=== PATIENT | male | born 1985 | race African-American/Black ===

== ENCOUNTER 2017-09-16 18:05 | Emergency (ER) | payer OTHER ==
[~2017-09-16] VITALS: Ht 175.3 cm; Wt 74.0 kg
[2017-09-16 18:26] VITALS: BP 109/67; PULSE 87; RESP 14; TEMP 97.9; O2SAT 100
[2017-09-16 19:19] VITALS: BP 119/66; PULSE 92; RESP 18; O2SAT 99
--- NOTE | 2017-09-16 19:44 | PD ---
HPI Chief Complaint: Psychiatric Symptoms Time Seen by Provider: 19:13 Travel History International Travel<30 days: No Contact w/Intl Traveler<30days: No Traveled to known affect area: No History of Present Illness HPI 32-year-old black male presents emergency department on a voluntary basis for psychological evaluation. Patient states that he has a history of schizophrenia and has been off his medicine for approximately 1-1/2 weeks. He states that he had just decided not to take them any longer. He has had increasing auditory hallucinations. He states that his hearing voices clearly telling him to kill himself. He has no plan on self-harm. He denies any homicidal ideation. He does smoke marijuana. He denies alcohol and tobacco. He denies any medical complaints otherwise[facility] Past Medical History Narrative Medical Schizophrenia Tetanus Vaccination: Unknown Past Surgical History Surgical History: No Previous Surgery Social History Alcohol Use: No Tobacco Use: No Substance Use: Yes (Marijuana) Allergies-Medications (Allergen,Severity, Reaction): Coded Allergies: No Known Allergies (Unverified , 09/16/17) Review of Systems General / Constitutional: No: Fever Eyes: No: Visual changes HENT: No: Headaches Cardiovascular: No: Chest Pain or Discomfort Respiratory: No: Shortness of Breath Gastrointestinal: No: Abdominal Pain Genitourinary: No: Dysuria Musculoskeletal: No: Pain Skin: No Rash Neurologic: No: Weakness Psychiatric: Positive: Depression, Disorder of Thought, Substance Abuse, No: Anxiety, Suicidal Ideations, Mood Disorder, Homicidal Ideation Endocrine: No: Polydipsia Hematologic/Lymphatic: No: Easy Bruising Physical Exam Narrative GENERAL: Well-nourished, well-developed patient. SKIN: Warm and dry. HEAD: Normocephalic and atraumatic. EYES: No scleral icterus. No injection or drainage. ENT: No nasal drainage noted. Mucous membranes pink. Airway patent. NECK: Supple, trachea midline. Moves head freely without obvious discomfort. CARDIOVASCULAR: Regular rate and rhythm without murmurs, gallops, or rubs. RESPIRATORY: Breath sounds equal bilaterally. No accessory muscle use. GASTROINTESTINAL: Abdomen soft, non-tender, nondistended. EXTREMITIES: No cyanosis or edema. BACK: Nontender without obvious deformity. No CVA tenderness. NEURO: Patient is alert and oriented. no sensorimotor deficits. Nonfocal. Normal speech. PSYCH: Patient admits to auditory hallucinations telling him to kill himself. No visual hallucinations. Data Data Last Documented VS Vital Signs Date Time Temp Pulse Resp B/P (MAP) Pulse Ox O2 Delivery O2 Flow Rate FiO2 09/17/17 00:39 18 09/16/17 19:19 92 99 Room Air 09/16/17 18:26 97.9 Orders Orders Diet Regular Basic (09/17/17 Breakfast) Complete Blood Count With Diff (09/16/17 19:35) Comprehensive Metabolic Panel (09/16/17 19:35) Thyroid Stimulating Hormone (09/16/17 19:35) Drug Screen, Random Urine (09/16/17 19:35) Alcohol (Ethanol) (09/16/17 19:35) Salicylates (Aspirin) (09/16/17 19:35) Tylenol (Acetaminophen) (09/16/17 19:35) Diet Regular Basic (09/16/17 Breakfast) Ed Discharge Order (09/17/17 04:37) MDM Medical Decision Making Medical Screen Exam Complete: Yes Emergency Medical Condition: Yes Medical Record Reviewed: Yes Differential Diagnosis MDM: High Differential diagnoses: Schizophrenia, schizoaffective disorder, bipolar, anxiety, depression, adjustment reaction, mood disorder NOS, ODD, depressive disorder NOS,, psychosis NOS, substance induced mood disorder, infection, electrolyte abnormality, malingering. Narrative Course Mental health screening discussed with the patient. Psychiatric screen ordered. The patient's been medically cleared. The patient has refused laboratory testing. He has refused to give urine. I do not believe that I will need this to consider him medically cleared. This is medical clearance for psychiatric admission, schizophrenia The patient now has requested leave. He has been evaluated by the psych screener. She does not believe that the patient requires inpatient management. She does not feel the patient is a candidate for a Quintero act at this time. He has not acutely suicidal homicidal. She feels comfortable letting him go home. Diagnosis Primary Impression: Medical clearance for psychiatric admission Additional Impression: Schizophrenia Referrals: [facility] (Out patient) 1 day Patient Instructions: General Instructions Additional Instructions: Rest. Follow-up with the recommendations of the psych screener. Follow-up with [facility] today. Med/Other Pt SpecificInfo: No Meds Exist/No RX given Disposition: DISCHARGE HOME Condition: Stable Niraj Lau Sep 16, 2017 19:44
[2017-09-17 00:39] VITALS: RESP 18
[2017-09-17 04:48] VITALS: RESP 18
== END 2017-09-17 05:06 | disposition home or self-care (01) ==
LOC: NEPJ 18:05
DX: Z02.89 Encounter for other administrative examinations (principal); F20.9 Schizophrenia, unspecified; R44.0 Auditory hallucinations
CPT/HCPCS: 99283

== ENCOUNTER 2017-09-17 04:59 | Inpatient (IN) | payer OTHER ==
[~2017-09-17] VITALS: Ht 175.3 cm; Wt 70.0 kg
[2017-09-17 05:00] VITALS: BP 138/60; PULSE 103; RESP 18; TEMP 97.7; O2SAT 95
[2017-09-17 05:51] LABS: AUTOMATED NEUTROPHIL # 4.6 TH/MM3 (1.8-7.7); BASOPHIL # 0.1 TH/MM3 (0-0.2); BASOPHIL % 0.8 % (0.0-2.0); EOSINOPHIL % 0.5 % (0.0-4.0); HEMATOCRIT 51.9 % (39.0-51.0); HEMOGLOBIN 17.8 GM/DL (13.0-17.0); LYMPH % 30.7 % (9.0-44.0); LYMPHOCYTE # 2.4 TH/MM3 (1.0-4.8); MEAN CELL VOLUME 89.9 FL (80.0-100.0); MEAN CORPUSCULAR HEMOGLOBIN 30.7 PG (27.0-34.0); MEAN CORPUSCULAR HGB CONC 34.2 % (32.0-36.0); MEAN PLATELET VOLUME 7.7 FL (7.0-11.0); MONO % 10.8 % (0.0-8.0); MONOCYTE # 0.9 TH/MM3 (0-0.9); NEUT % 57.2 % (16.0-70.0); PLATELET COUNT 267 TH/MM3 (150-450); RED BLOOD COUNT 5.77 MIL/MM3 (4.50-5.90); RED CELL DISTRIBUTION WIDTH 14.7 % (11.6-17.2)
[2017-09-17 06:27] LABS: BICARBONATE 25.6 MEQ/L (21.0-32.0); BLOOD UREA NITROGEN 22 MG/DL (7-18); CALCIUM 9.5 MG/DL (8.5-10.1); CHLORIDE 102 MEQ/L (98-107); CREATININE 1.94 MG/DL (0.60-1.30); GLOMERULAR FILTRATION RATE 48 ML/MIN (>89); GLUCOSE,RANDOM 108 MG/DL (74-106); SODIUM (NA) 137 MEQ/L (136-145)
--- NOTE | 2017-09-17 07:15 | PD ---
HPI Chief Complaint: Medication Refill Request Time Seen by Provider: 05:21 Travel History International Travel<30 days: No Contact w/Intl Traveler<30days: No Traveled to known affect area: No History of Present Illness HPI 32-year-old male states he is off his medications and wanting help. He states he intermittently has suicidal thoughts. Patient is a very poor historian and has difficulty focusing and answering other questions but he denies other specific pain or complaints. [facility] Past Medical History Narrative Medical States on psychiatry medication Past Surgical History Surgical History: No Previous Surgery Social History Alcohol Use: No Tobacco Use: No Substance Use: Yes (Marijuana) Allergies-Medications (Allergen,Severity, Reaction): Coded Allergies: No Known Allergies (Unverified , 09/17/17) Reported Meds & Prescriptions Reported Meds & Active Scripts Active No Active Prescriptions or Reported Medications Review of Systems ROS Limitations: Poor Historian Except as stated in HPI: all other systems reviewed are Neg Physical Exam Exam Limitations: Poor Historian Narrative GENERAL: 32-year-old male in no apparent distress SKIN: Focused skin assessment warm/dry. HEAD: Atraumatic. Normocephalic. EYES: Pupils equal and round. No scleral icterus. No injection or drainage. ENT: No nasal bleeding or discharge. Mucous membranes pink and moist. NECK: Trachea midline. No JVD. CARDIOVASCULAR: Regular rate and rhythm. RESPIRATORY: No accessory muscle use. Clear to auscultation. Breath sounds equal bilaterally. GASTROINTESTINAL: Abdomen soft, non-tender, nondistended. Hepatic and splenic margins not palpable. MUSCULOSKELETAL: No obvious deformities. No clubbing. No cyanosis. NEUROLOGICAL: Awake. No obvious cranial nerve deficits. Motor grossly within normal limits. Normal speech. Data Data Last Documented VS Vital Signs Date Time Temp Pulse Resp B/P (MAP) Pulse Ox O2 Delivery O2 Flow Rate FiO2 09/17/17 05:00 97.7 103 18 138/60 (86) 95 Orders Orders Complete Blood Count With Diff (09/17/17 05:21) Basic Metabolic Panel (Bmp) (09/17/17 05:21) Psych Screen (09/17/17 05:21) Drug Screen, Random Urine (09/17/17 05:21) Alcohol (Ethanol) (09/17/17 05:21) Creatine Kinase (Cpk) (09/17/17 06:43) Labs Laboratory Tests Test 09/17/17 05:29 White Blood Count 8.0 TH/MM3 Red Blood Count 5.77 MIL/MM3 Hemoglobin 17.8 GM/DL Hematocrit 51.9 % Mean Corpuscular Volume 89.9 FL Mean Corpuscular Hemoglobin 30.7 PG Mean Corpuscular Hemoglobin Concent 34.2 % Red Cell Distribution Width 14.7 % Platelet Count 267 TH/MM3 Mean Platelet Volume 7.7 FL Neutrophils (%) (Auto) 57.2 % Lymphocytes (%) (Auto) 30.7 % Monocytes (%) (Auto) 10.8 % Eosinophils (%) (Auto) 0.5 % Basophils (%) (Auto) 0.8 % Neutrophils # (Auto) 4.6 TH/MM3 Lymphocytes # (Auto) 2.4 TH/MM3 Monocytes # (Auto) 0.9 TH/MM3 Eosinophils # (Auto) 0.0 TH/MM3 Basophils # (Auto) 0.1 TH/MM3 CBC Comment DIFF FINAL Differential Comment Blood Urea Nitrogen 22 MG/DL Creatinine 1.94 MG/DL Random Glucose 108 MG/DL Calcium Level 9.5 MG/DL Sodium Level 137 MEQ/L Potassium Level 3.5 MEQ/L Chloride Level 102 MEQ/L Carbon Dioxide Level 25.6 MEQ/L Anion Gap 9 MEQ/L Estimat Glomerular Filtration Rate 48 ML/MIN Ethyl Alcohol Level LESS THAN 3 MG/DL MDM Medical Decision Making Medical Screen Exam Complete: Yes Emergency Medical Condition: Yes Medical Record Reviewed: Yes (Past history confirmed) Differential Diagnosis Noncompliance, electrolyte abnormality, drug use, depression Narrative Course We will check blood work for medical clearance Physician Communication Physician Communication dr pool to follow workup and reevaluate Scripts No Active Prescriptions or Reported Meds Paula Murdock MD Sep 17, 2017 07:15
--- NOTE | 2017-09-17 08:44 | PD ---
Physical Exam Narrative Receive sign out from previous team to follow up CPK and psych evaluation. 32yo M here with intermittent suicidal thoughts. Labs reviewed, no leukocytosis. H/H mildly elevated, may be dehydrated. BUN/creatinine elevated at 22/1.94, no prior to compare. CPK was ordered by previous team to make sure pt is not in rhabdomyolysis. Pt given gatorade and orally hydrating. Pt is well appearing and has no chest pain, sob, abdominal pain, focal weakness or numbness. Pt admits to using Lynn a few days ago. Pt was seen by psychiatrist Dr. Deshpande and is clear by his point of view to be discharged. Impression is more malingering and pt do not need any prescriptions. CPK is elevated at 3479, will give NS IVF and observe for [place] secondary to rhabdomyolysis. Data Data Last Documented VS Vital Signs Date Time Temp Pulse Resp B/P (MAP) Pulse Ox O2 Delivery O2 Flow Rate FiO2 09/17/17 05:00 97.7 103 18 138/60 (86) 95 Orders Orders Complete Blood Count With Diff (09/17/17 05:21) Basic Metabolic Panel (Bmp) (09/17/17 05:21) Psych Screen (09/17/17 05:21) Drug Screen, Random Urine (09/17/17 05:21) Alcohol (Ethanol) (09/17/17 05:21) Creatine Kinase (Cpk) (09/17/17 06:43) CKMB (09/17/17 05:29) CKMB% (09/17/17 05:29) Sodium Chlor 0.9% 1000 Ml Inj (Ns 1000 M (09/17/17 09:15) Sodium Chlor 0.9% 1000 Ml Inj (Ns 1000 M (09/17/17 09:15) Labs Laboratory Tests Test 09/17/17 05:29 09/17/17 06:57 White Blood Count 8.0 TH/MM3 Red Blood Count 5.77 MIL/MM3 Hemoglobin 17.8 GM/DL Hematocrit 51.9 % Mean Corpuscular Volume 89.9 FL Mean Corpuscular Hemoglobin 30.7 PG Mean Corpuscular Hemoglobin Concent 34.2 % Red Cell Distribution Width 14.7 % Platelet Count 267 TH/MM3 Mean Platelet Volume 7.7 FL Neutrophils (%) (Auto) 57.2 % Lymphocytes (%) (Auto) 30.7 % Monocytes (%) (Auto) 10.8 % Eosinophils (%) (Auto) 0.5 % Basophils (%) (Auto) 0.8 % Neutrophils # (Auto) 4.6 TH/MM3 Lymphocytes # (Auto) 2.4 TH/MM3 Monocytes # (Auto) 0.9 TH/MM3 Eosinophils # (Auto) 0.0 TH/MM3 Basophils # (Auto) 0.1 TH/MM3 CBC Comment DIFF FINAL Differential Comment Blood Urea Nitrogen 22 MG/DL Creatinine 1.94 MG/DL Random Glucose 108 MG/DL Calcium Level 9.5 MG/DL Sodium Level 137 MEQ/L Potassium Level 3.5 MEQ/L Chloride Level 102 MEQ/L Carbon Dioxide Level 25.6 MEQ/L Anion Gap 9 MEQ/L Estimat Glomerular Filtration Rate 48 ML/MIN Total Creatine Kinase 3479 U/L Ethyl Alcohol Level LESS THAN 3 MG/DL Urine Opiates Screen NEG Urine Barbiturates Screen NEG Urine Amphetamines Screen NEG Urine Benzodiazepines Screen NEG Urine Cocaine Screen POS Urine Cannabinoids Screen POS MDM Supervised Visit with [facility]STAL: No Diagnosis Primary Impression: Rhabdomyolysis Qualified Codes: M62.82 - Rhabdomyolysis Additional Impression: [place] (acute kidney injury) Admitting Information Admitting Physician Requests: Observation Scripts No Active Prescriptions or Reported Meds Debbie Baxter DO Sep 17, 2017 08:44
[2017-09-17] MEDS ORDERED: SODIUM CHLOR 0.9% 1000 ML INJ 1,000 ML IV ONE ×2 (09:15)
[2017-09-17 09:25] VITALS: BP 110/59; PULSE 81; RESP 16; TEMP 97.8; O2SAT 100
[2017-09-17] MEDS: SODIUM CHLOR 0.9% 1000 ML INJ 1,000 ML IV SCH ×2 (11:18→23:20)
[2017-09-17 12:06] VITALS: BP 126/64; PULSE 84; RESP 19; TEMP 98.1; O2SAT 97
--- NOTE | 2017-09-17 12:29 | HHI.HP ---
[facility] Service [facility] Primary Care Physician No Primary Care Physician Admission Diagnosis Rhabdomyolysis, [place] Diagnoses: Chief Complaint: hallucinations Travel History International Travel<30 Days: No Contact w/Intl Traveler <30 Da: No Traveled to Known Affected Are: No History of Present Illness Written by Kim Mello, acting as scribe for Dr. Herbert on 09/17/17 at 12: 28. 32-year-old male with history of tobacco use, marijuana use, and schizophrenia presents with auditory hallucinations. The patient reports he came to the hospital because he started hearing voices. He states the voices are mostly chanting and he can't really make out what they are saying. Denies any suicidal or homicidal ideations. He states he is supposed to be taking Risperdal, Trazodone, Seroquel however had been out of the medications for 1 week now. He does not have PCP but does get prescriptions from [facility]. Denies any pain, headache, lightheadedness, dizziness, chest pain, or abdominal complaints. Diastolic murmur heard on exam, patient does endorse shortness of breath with ambulation. Admits to marijuana use but denies any IVDU. He denies any other medical complaints at this time. Review of Systems Except as stated in HPI: all other systems reviewed are Neg Past Family Social History Past Medical History schizophrenia Past Surgical History Denies any prior surgeries. Reported Medications Risperdal, Trazodone, Seroquel (unknown doses, RN to update med list) Allergies: Coded Allergies: No Known Allergies (Unverified , 09/17/17) Active Ordered Medications Current Medications Medications (Trade) Dose Ordered Sig/Rosalinda Route Start Time Stop Time Status Last Admin Sodium Chloride 1,000 ml @ 150 mls/hr [id number] IV 09/17/17 10:00 09/17/17 11:18 Family History Denies any significant family history. Social History Smokes tobacco, 4 cigarettes daily Denies any alcohol use Admits to marijuana use, last time 2 days ago Denies any IVDU Physical Exam Vital Signs Vital Signs Date Time Temp Pulse Resp B/P (MAP) Pulse Ox O2 Delivery O2 Flow Rate FiO2 09/17/17 12:06 98.1 84 19 126/64 (84) 97 09/17/17 09:25 97.8 81 16 110/59 (76) 100 Room Air 09/17/17 05:00 97.7 103 18 138/60 (86) 95 Physical Exam GENERAL: Well-nourished, well-developed young AA male patient in [facility]. SKIN: Warm and dry. No rash. HEAD: Normocephalic. Atraumatic. EYES: Pupils equal and round. No scleral icterus. No injection or drainage. ENT: No nasal bleeding or discharge. Mucous membranes pink and moist. NECK: Supple. Trachea midline. CARDIOVASCULAR: Regular rate and rhythm. 2/6 diastolic murmur heard best at left sternal border. RESPIRATORY: No accessory muscle use. Clear to auscultation. Breath sounds equal bilaterally. GASTROINTESTINAL: Abdomen soft, non-tender, nondistended. Normoactive bowel sounds x4. MUSCULOSKELETAL: No obvious deformities. Extremities without clubbing, cyanosis , or edema. NEUROLOGICAL: Awake and alert. No obvious cranial nerve deficits. Motor grossly within normal limits. Normal speech. PSYCHIATRIC: +hallucinations; insight and judgment normal. Laboratory Laboratory Tests Test 09/17/17 05:29 09/17/17 06:57 White Blood Count 8.0 Red Blood Count 5.77 Hemoglobin 17.8 Hematocrit 51.9 Mean Corpuscular Volume 89.9 Mean Corpuscular Hemoglobin 30.7 Mean Corpuscular Hemoglobin Concent 34.2 Red Cell Distribution Width 14.7 Platelet Count 267 Mean Platelet Volume 7.7 Neutrophils (%) (Auto) 57.2 Lymphocytes (%) (Auto) 30.7 Monocytes (%) (Auto) 10.8 Eosinophils (%) (Auto) 0.5 Basophils (%) (Auto) 0.8 Neutrophils # (Auto) 4.6 Lymphocytes # (Auto) 2.4 Monocytes # (Auto) 0.9 Eosinophils # (Auto) 0.0 Basophils # (Auto) 0.1 CBC Comment DIFF FINAL Differential Comment Blood Urea Nitrogen 22 Creatinine 1.94 Random Glucose 108 Calcium Level 9.5 Sodium Level 137 Potassium Level 3.5 Chloride Level 102 Carbon Dioxide Level 25.6 Anion Gap 9 Estimat Glomerular Filtration Rate 48 Total Creatine Kinase 3479 Creatine Kinase MB 10.8 Creatine Kinase MB % 0.3 Ethyl Alcohol Level LESS THAN 3 Urine Opiates Screen NEG Urine Barbiturates Screen NEG Urine Amphetamines Screen NEG Urine Benzodiazepines Screen NEG Urine Cocaine Screen POS Urine Cannabinoids Screen POS Result Diagram: 09/17/1752809/17/17528 Caprin VTE Risk Assessment Caprin VTE Risk Assessment: No/Low Risk (score <= 1) Caprini Risk Assessment Model Point Value = 1 Point Value = 2 Point Value = 3 Point Value = 5 Age 41-60 Minor surgery BMI > 25 kg/m2 Swollen legs Varicose veins or History of unexplained or recurrent spontaneous Oral contraceptives or hormone replacement Sepsis (< 1 month) Serious lung disease, including pneumonia (< 1 month) Abnormal pulmonary function Acute myocardial infarction Congestive heart failure (< 1 month) History of inflammatory bowel disease Medical patient at bed rest Age 61-74 Arthroscopic surgery Major open surgery (> 45 min) Laparoscopic surgery (> 45 min) Malignancy Confined to bed (> 72 hours) Immobilizing plaster cast Central venous access Age >= 75 History of VTE Family history of VTE Factor V Leiden Prothrombin [id number] Lupus anticoagulant Anticardiolipin antibodies Elevated serum homocysteine Heparin-induced thrombocytopenia Other congenital or acquired thrombophilia Stroke (< 1 month) Elective arthroplasty Hip, pelvis, or leg fracture Acute spinal cord injury (< 1 month) Prophylaxis Regimen Total Risk Factor Score Risk Level Prophylaxis Regimen 0-1 Low Early ambulation 2 Moderate Order ONE of the following: *Sequential Compression Device (SCD) *Heparin 5000 units SQ BID 3-4 Higher Order ONE of the following medications: *Heparin 5000 units SQ TID *Enoxaparin/Lovenox 40 mg SQ daily (WT < 150 kg, CrCl > 30 mL/min) *Enoxaparin/Lovenox 30 mg SQ daily (WT < 150 kg, CrCl > 10-29 mL/min) *Enoxaparin/Lovenox 30 mg SQ BID (WT < 150 kg, CrCl > 30 mL/min) AND/OR *Sequential Compression Device (SCD) 5 or more Highest Order ONE of the following medications: *Heparin 5000 units SQ TID (Preferred with Epidurals) *Enoxaparin/Lovenox 40 mg SQ daily (WT < 150 kg, CrCl > 30 mL/min) *Enoxaparin/Lovenox 30 mg SQ daily (WT < 150 kg, CrCl > 10-29 mL/min) *Enoxaparin/Lovenox 30 mg SQ BID (WT < 150 kg, CrCl > 30 mL/min) AND *Sequential Compression Device (SCD) Assessment and Plan Problem List: (1) Hallucinations ICD Code: R44.3 - Hallucinations, unspecified (2) [place] (acute kidney injury) ICD Code: N17.9 - Acute kidney failure, unspecified Status: Acute (3) Rhabdomyolysis ICD Code: M62.82 - Rhabdomyolysis Status: Acute Assessment and Plan 32-year-old male with history of tobacco use, marijuana use, and schizophrenia presents with auditory hallucinations. Rhabdomyolysis: suspect secondary to cocaine use. UDS +cocaine/cannabinoids. -Check UA -CPK 3479, continue to trend -S/p IVF boluses, continue on IVF with NS @150cc/hr -Encourage oral fluid intake AUSTIN: Cr 1.94. Suspect secondary to dehydration/rhabdo. -give IVF with NS at 150cc/hr -avoid nephrotoxins -monitor renal function -consider renal U/S if no improvement Hallucinations: with hx of Schizophrenia. Patient reportedly out of meds x1 week , supposed to be taking Risperdal, Trazodone, Seroquel. Denies SI/HI. 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 Patient does endorse dyspnea on exertion. No signs of fluid overload. -check echocardiogram DVT Prophylaxis: ambulation the above note was scribed by Ms.Kristy Kayla Fleming I attest that I had a face-to -face encounter with the patient and personally performed history and physical exam and medical-decision making. Discussed Condition With Patient, ER MD Problem Qualifiers (1) Rhabdomyolysis: Qualified Codes: M62.82 - Rhabdomyolysis Kim Mello PA-C Sep 17, 2017 12:29 Herman Herbert MD Sep 17, 2017 13:58
[2017-09-17 14:23] LABS: BACTERIA, URINE RARE /hpf; BILIRUBIN, URINE NEG (NEG); BLOOD, URINE MOD (NEG); GLUCOSE,URINE NEG (NEG); HYALINE CAST, URINE 7 /lpf (RARE); KETONE, URINE 10 mg/dL (NEG); MUCUS URINE FEW /lpf (OCC); NITRITE,URINE NEG (NEG); PH, URINE 5.5 (5.0-8.5); SQUAMOUS EPITHELIAL CELL URINE <1 /hpf (0-5); URINE COLOR YELLOW (YELLW/STRAW); URINE LEUKOCYTE ESTERASE NEG (NEG)
--- NOTE | 2017-09-17 15:02 | PD.PSY.CON ---
Provisional Diagnosis Admission Date Sep 17, 2017 at 10:05 Tillman I. Substance-induced psychosis, cocaine and cannabis use disorder self-reported schizophrenia, conscious simulation Tillman II. Deferred History of Present Illness Service Psychiatry Consult Requested By ER Reason for Consult Issues with prescription Primary Care Physician No Primary Care Physician HPI The patient is a 32-year-old -[place] man, domiciled with his mother in [place], unemployed, single, with self-reported psychiatric history of schizophrenia, initially he denies any use of drugs, and refused to give urine, but later on gave urine and he was positive for cocaine and cannabis, he reports no psychiatric hospitalizations, he says that he has outpatient psychiatric care in [facility] and he is on Risperdal and trazodone, no previous suicide attempts, no significant medical history, who came initially to the ER requesting prescriptions for medication. He was the night initially with the recommendation of going back to [facility], but he came back to stating that he was hearing voices. Now admitted under observation due to rhabdomyolysis: suspect secondary to cocaine use. UDS +cocaine/cannabinoids. CPK 3479, continue to trend. AUSTIN: Cr 1.94. Suspect secondary to dehydration/rhabdo. I spoke with the patient he says that he has been hearing nonspecific boluses, noncommanding and type because he is not taking his psychotropics. He says that he has a psychiatrist in [facility], but he has not seen his psychiatrist in about 2 months. Patient was confronted his cocaine and cannabis use disorder, and he admits using this drugs every day. At this moment the patient denies suicidal and homicidal ideation, he denies visual and auditory hallucinations. Review of Systems Constitutional: COMPLAINS OF: Diaphoretic episodes, Fatigue, Fever, Weight gain , Weight loss, Chills, Dizziness, Change in appetite, Night Sweats Endocrine: DENIES: Heat/cold intolerance, Polydipsia, Polyuria, Polyphagia Eyes: DENIES: Blurred vision, Diplopia, Eye inflammation, Eye pain, Vision loss , Photosensitivity, Double Vision Ears, nose, mouth, throat: DENIES: Tinnitus, Hearing loss, Vertigo, Nasal discharge, Oral lesions, Throat pain, Hoarseness, Ear Pain, Running Nose, Epistaxis, Sinus Pain, Toothache, Odynophagia Respiratory: DENIES: Apneas, Cough, Snoring, Wheezing, Hemoptysis, Sputum production, Shortness of breath Cardiovascular: DENIES: Chest pain, Palpitations, Syncope, Dyspnea on Exertion , PND, Lower Extremity Edema, Orthopnea, Claudication Gastrointestinal: DENIES: Abdominal pain, Black stools, Bloody stools, Constipation, Diarrhea, Nausea, Vomiting, Difficulty Swallowing, Anorexia Genitourinary: DENIES: Sexual dysfunction, Urinary frequency, Urinary incontinence, Urgency, Hematuria, Dysuria, Nocturia, Penile Discharge, Testicular Pain, Testicular Swelling Musculoskeletal: DENIES: Joint pain, Muscle aches, Stiffness, Joint Swelling, Back pain, Neck pain Integumentary: DENIES: Abnormal pigmentation, Nail changes, Pruritus, Rash Hematologic/lymphatic: DENIES: Bruising, Lymphadenopathy Immunologic/allergic: DENIES: Eczema, Urticaria Neurologic: DENIES: Abnormal gait, Headache, Localized weakness, Paresthesias, Seizures, Speech Problems, Tremor, Poor Balance Psychiatric: DENIES: Anxiety, Confusion, Mood changes, Depression, Hallucinations, Agitation, Suicidal Ideation, Homicidal Ideation, Delusions Past Family Social History Coded Allergies: No Known Allergies (Unverified , 09/17/17) No Active Prescriptions or Reported Meds Current Medications Medications (Trade) Dose Ordered Sig/Rosalinda Route Start Time Stop Time Status Last Admin Sodium Chloride 1,000 ml @ 150 mls/hr [id number] IV 09/17/17 10:00 09/17/17 11:18 Family Psych History He denies family psychiatric history Social History Patient was born and raised in [place], he lives in [place] with his mother, single, unemployed, his highest level of education is 12th Patient's Strengths (min. 2) Outpatient psychiatric Physical Exam Vital Signs Vital Signs Date Time Temp Pulse Resp B/P (MAP) Pulse Ox O2 Delivery O2 Flow Rate FiO2 09/17/17 12:06 98.1 84 19 126/64 (84) 97 09/17/17 09:25 Room Air I/O 09/17/17 09/17/17 09/18/17 08:00 16:00 00:00 Intake Total 2240 ml Balance 2240 ml Lab Results Test 09/17/17 05:29 09/17/17 06:57 White Blood Count 8.0 TH/MM3 Red Blood Count 5.77 MIL/MM3 Hemoglobin 17.8 GM/DL Hematocrit 51.9 % Mean Corpuscular Volume 89.9 FL Mean Corpuscular Hemoglobin 30.7 PG Mean Corpuscular Hemoglobin Concent 34.2 % Red Cell Distribution Width 14.7 % Platelet Count 267 TH/MM3 Mean Platelet Volume 7.7 FL Neutrophils (%) (Auto) 57.2 % Lymphocytes (%) (Auto) 30.7 % Monocytes (%) (Auto) 10.8 % Eosinophils (%) (Auto) 0.5 % Basophils (%) (Auto) 0.8 % Neutrophils # (Auto) 4.6 TH/MM3 Lymphocytes # (Auto) 2.4 TH/MM3 Monocytes # (Auto) 0.9 TH/MM3 Eosinophils # (Auto) 0.0 TH/MM3 Basophils # (Auto) 0.1 TH/MM3 CBC Comment DIFF FINAL Differential Comment Blood Urea Nitrogen 22 MG/DL Creatinine 1.94 MG/DL Random Glucose 108 MG/DL Calcium Level 9.5 MG/DL Sodium Level 137 MEQ/L Potassium Level 3.5 MEQ/L Chloride Level 102 MEQ/L Carbon Dioxide Level 25.6 MEQ/L Anion Gap 9 MEQ/L Estimat Glomerular Filtration Rate 48 ML/MIN Total Creatine Kinase 3479 U/L Creatine Kinase MB 10.8 NG/ML Creatine Kinase MB % 0.3 % Ethyl Alcohol Level LESS THAN 3 MG/DL Urine Color YELLOW Urine Turbidity HAZY Urine pH 5.5 Urine Specific Left Hand 1.030 Urine Protein 30 mg/dL Urine Glucose (UA) NEG mg/dL Urine Ketones 10 mg/dL Urine Occult Blood MOD Urine Nitrite NEG Urine Bilirubin NEG Urine Urobilinogen LESS THAN 2.0 MG/DL Urine Leukocyte Esterase NEG Urine RBC 3 /hpf Urine WBC 4 /hpf Urine Squamous Epithelial Cells <1 /hpf Urine Bacteria RARE /hpf Urine Hyaline Casts 7 /lpf Urine Mucus FEW /lpf Microscopic Urinalysis Comment CULT NOT INDICATED Urine Opiates Screen NEG Urine Barbiturates Screen NEG Urine Amphetamines Screen NEG Urine Benzodiazepines Screen NEG Urine Cocaine Screen POS Urine Cannabinoids Screen POS Mental Status Examination Appearance: Appropriate Consciousness: Alert Orientation: x4 Motor Activity: Normal gait Speech: Unremarkable Language: Adequate Fund of Knowledge: Adequate Attention and Concentration: Adequate Memory: Unremarkable Mood: Appropriate Affect: Appropriate Thought Process & Associations: Intact Thought Content: Appropriate Hallucination Type: None Delusion Type: None Suicidal Ideation: No Suicidal Plan: No Suicidal Intention: No Homicidal Ideation: No Homicidal Plan: No Homicidal Intention: No Insight: Adequate Judgment: Adequate Assessment & Plan Problem List: (1) Substance-induced psychotic disorder ICD Codes: F19.959 - Other psychoactive substance use, unspecified with psychoactive substance-induced psychotic disorder, unspecified Assessment & Plan: On psychiatric evaluation the patient reports episodic unspecific, noncommanding type auditory hallucinations in the context of cocaine and cannabis use disorder, noncompliant with psychotropics. Patient is supposed to be taken Risperdal and trazodone prescribed by [facility], but he has not been taking his medication for 2 months. He denies suicidal and homicidal ideation. He denies visual and auditory hallucinations at the moment. Perceptual disturbances are most probably secondary to cocaine and cannabis use disorder. He does not meet criteria for involuntary psychiatric admission at this moment. Patient was recommended to go back to [facility] to continue psychiatric care as an outpatient. No psychotropics will be prescribed. Assessment & Plan Estimated LOS: Robert Sims MD Sep 17, 2017 15:02
[2017-09-17 16:00] VITALS: BP 136/61; PULSE 80; RESP 18; TEMP 98.3; O2SAT 100
[2017-09-17 16:12] VITALS: BP 126/58; PULSE 75; RESP 18; TEMP 98.2; O2SAT 97
--- NOTE | 2017-09-17 17:40 | ECHRPT ---
Indication: Cardiomyopathy, Vegetations CONCLUSIONS The LVEF is about 50%. Wall thickness is normal. Normal left ventricular size. Mild thickening of the mitral valve leaflets. [id number] mitral valve regurgitation. Mildly thickened leaflets. There is mild tricuspid valve regurgitation. The estimated pulmonary arterial pressure is 26 mmHg. Mild pulmonary valve regurgitation. BP: / HR: 73 Rhythm: Sinus MEASUREMENTS (Male / Female) Normal Values Technical Quality:Fair 2D ECHO LV Diastolic Diameter PLAX 5.2 cm 4.2 - 5.9 / 3.9 - 5.3 cm LV Systolic Diameter PLAX 3.9 cm IVS Diastolic Thickness 0.8 cm 0.6 - 1.0 / 0.6 - 0.9 cm LVPW Diastolic Thickness 0.8 cm 0.6 - 1.0 / 0.6 - 0.9 cm LV Relative Wall Thickness 0.3 RV Internal Dim ED PLAX 2.9 cm LVOT Diameter 2.2 cm LA Systolic Diameter LX 2.9 cm 3.0 - 4.0 / 2.7 - 3.8 cm M-MODE Aortic Root Diameter MM 2.7 cm LA Systolic Diameter MM 2.5 cm LA Ao Ratio MM 0.9 AV Cusp Separation MM 2.3 cm DOPPLER AV Peak Velocity 140.0 cm/s AV Peak Gradient 7.8 mmHg LVOT Peak Velocity 130.0 cm/s LVOT Peak Gradient 6.8 mmHg AV Area Cont Eq pk 3.5 cm MV Area PHT 2.8 cm Mitral E Point Velocity 48.9 cm/s Mitral A Point Velocity 45.6 cm/s Mitral E to A Ratio 1.1 LV E' Lateral Velocity 17.2 cm/s Mitral E to LV E' Lateral Ratio 2.8 LV E' Septal Velocity 10.2 cm/s Mitral E to LV E' Septal Ratio 4.8 TR Peak Velocity 200.0 cm/s TR Peak Gradient 16.0 mmHg FINDINGS LEFT VENTRICLE The LVEF is about 50%. Wall thickness is normal. Normal left ventricular size. RIGHT VENTRICLE Normal right ventricular size and systolic function. LEFT ATRIUM The left atrial size is normal. RIGHT ATRIUM The right atrial size is normal. ATRIAL SEPTUM Normal atrial septal thickness without atrial level shunting by limited color doppler interrogation. AORTA The aortic root and proximal ascending aorta are normal in size on limited imaging. MITRAL VALVE Mild thickening of the mitral valve leaflets. [id number] mitral valve regurgitation. AORTIC VALVE Trileaflet aortic valve. No aortic valve stenosis or regurgitation. TRICUSPID VALVE Mildly thickened leaflets. There is mild tricuspid valve regurgitation. The estimated pulmonary arterial pressure is 26 mmHg. PULMONARY VALVE Mild pulmonary valve regurgitation. VESSELS The inferior vena cava is normal in size. PERICARDIUM No pericardial effusion. Lon Turner MD (Electronically Signed) Final Date:17 September 2017 17:39
[2017-09-17 20:45] VITALS: BP 116/70; PULSE 90; RESP 16; TEMP 97.9; O2SAT 96
[2017-09-18 00:50] VITALS: BP 120/59; PULSE 79; RESP 16; TEMP 98.1; O2SAT 98
[2017-09-18 04:50] VITALS: BP 117/55; PULSE 75; RESP 16; TEMP 97.6; O2SAT 99
[2017-09-18 08:00] VITALS: BP 129/62; PULSE 80; RESP 18; TEMP 97.7; O2SAT 99
[2017-09-18] MEDS: SODIUM CHLOR 0.9% 1000 ML INJ 1,000 ML IV SCH ×3 (08:15→20:03)
[2017-09-18 08:36] LABS: BICARBONATE 27.5 MEQ/L (21.0-32.0); CREATININE 1.03 MG/DL (0.60-1.30)
[2017-09-18 12:00] VITALS: BP 130/66; PULSE 78; RESP 18; TEMP 97.9; O2SAT 98
--- NOTE | 2017-09-18 14:37 | HHI.PR ---
Subjective Remarks Follow-up rhabdomyolysis. Patient states that he is feeling much better. He is having some cramping in his lower legs. No other complaints at this time. Objective Vitals Vital Signs Date Time Temp Pulse Resp B/P (MAP) Pulse Ox O2 Delivery O2 Flow Rate FiO2 09/18/17 12:00 97.9 78 18 130/66 (87) 98 09/18/17 08:00 97.7 80 18 129/62 (84) 99 09/18/17 04:50 97.6 75 16 117/55 (75) 99 09/18/17 00:50 98.1 79 16 120/59 (79) 98 09/17/17 20:45 97.9 90 16 116/70 (85) 96 09/17/17 16:12 98.2 75 18 126/58 (80) 97 09/17/17 16:00 98.3 80 18 136/61 (86) 100 I/O 09/17/17 09/17/17 09/17/17 09/18/17 09/18/17 09/18/17 07:00 15:00 23:00 07:00 15:00 23:00 Intake Total 2240 ml 720 ml 903 ml Output Total 300 ml Balance 2240 ml -300 ml 720 ml 903 ml Intake Oral 240 ml 720 ml IV Total 2000 ml 903 ml Output Urine Total 300 ml # Voids 4 # Bowel Movements 1 0 Result Diagram: 09/17/17 0529 09/18/17 0652 Objective Remarks General: No acute distress. Heart: Regular rate and rhythm. No murmur. Lungs: Clear to auscultation bilaterally. No wheezes, rales, or rhonchi. Breathing is nonlabored. Abdomen: Soft, nontender, nondistended. Extremities: No lower extremity edema. Psych: Alert and oriented. Neuro: Normal speech. No focal deficits noted. Procedures None Urinary Catheter: No Vascular Central Line Catheter: No A/P Problem List: (1) Hallucinations ICD Code: R44.3 - Hallucinations, unspecified (2) AUSTIN (acute kidney injury) ICD Code: N17.9 - Acute kidney failure, unspecified Status: Acute (3) Rhabdomyolysis ICD Code: M62.82 - Rhabdomyolysis Status: Acute Assessment and Plan 1. Rhabdomyolysis: Likely secondary to cocaine use. Urine drug screen positive for cocaine and cannabinoids. CK trending up. Continue IV fluids. Encourage oral fluid intake. 2. Acute kidney injury: Improving. Continue IV fluids. 3. Hallucinations, history of schizophrenia: Appreciate psychiatry recommendations. No antipsychotic medications at this time. Follow-up as outpatient with Tommy Munoz. 4. Tobacco abuse: Counseled. Nicotine patch if needed. 5. Drug abuse: Patient admits to marijuana use. UDS positive for cocaine, cannabinoids. Counseled on cessation. 6. Diastolic heart murmur: Echocardiogram shows ejection fraction of 50% with normal wall thickness. There is mild thickening of the mitral valve leaflets, trace to mild mitral valve regurgitation, mild tricuspid valve regurgitation, mild pulmonary valve regurgitation. No signs of fluid overload on exam. 7. DVT prophylaxis: Ambulation. Problem Qualifiers (1) Rhabdomyolysis: Qualified Codes: M62.82 - Rhabdomyolysis Lalo Mejia MD Sep 18, 2017 14:37
[2017-09-18 16:00] VITALS: BP 140/72; PULSE 80; RESP 20; TEMP 97.6; O2SAT 100
[2017-09-18 20:00] VITALS: BP 143/65; PULSE 90; RESP 18; TEMP 98.8; O2SAT 98
[2017-09-19] VITALS: BP 114/71; PULSE 79; RESP 17; TEMP 98; O2SAT 98
[2017-09-19] MEDS: SODIUM CHLOR 0.9% 1000 ML INJ 1,000 ML IV SCH ×4 (02:04→22:30)
[2017-09-19 04:00] VITALS: BP 131/66; PULSE 70; RESP 16; TEMP 98.7; O2SAT 98
[2017-09-19 07:34] LABS: AUTOMATED NEUTROPHIL # 3.3 TH/MM3 (1.8-7.7); BASOPHIL % 0.6 % (0.0-2.0); EOSINOPHIL # 0.1 TH/MM3 (0-0.4); EOSINOPHIL % 1.3 % (0.0-4.0); HEMATOCRIT 40.5 % (39.0-51.0); HEMOGLOBIN 13.7 GM/DL (13.0-17.0); LYMPH % 37.3 % (9.0-44.0); LYMPHOCYTE # 2.3 TH/MM3 (1.0-4.8); MEAN CELL VOLUME 91.2 FL (80.0-100.0); MEAN CORPUSCULAR HEMOGLOBIN 30.8 PG (27.0-34.0); MEAN CORPUSCULAR HGB CONC 33.8 % (32.0-36.0); MEAN PLATELET VOLUME 7.9 FL (7.0-11.0); MONO % 7.6 % (0.0-8.0); MONOCYTE # 0.5 TH/MM3 (0-0.9); NEUT % 53.2 % (16.0-70.0); PLATELET COUNT 180 TH/MM3 (150-450); RED BLOOD COUNT 4.44 MIL/MM3 (4.50-5.90); RED CELL DISTRIBUTION WIDTH 14.3 % (11.6-17.2); WHITE BLOOD COUNT 6.1 TH/MM3 (4.0-11.0)
[2017-09-19 08:00] VITALS: BP 136/78; PULSE 76; RESP 16; TEMP 97.6; O2SAT 99
[2017-09-19 08:11] LABS: BICARBONATE 27.7 MEQ/L (21.0-32.0); CALCIUM 8.5 MG/DL (8.5-10.1); CREATININE 0.94 MG/DL (0.60-1.30)
[2017-09-19 12:00] VITALS: BP 133/63; PULSE 76; RESP 16; TEMP 97.6; O2SAT 100
--- NOTE | 2017-09-19 13:14 | HHI.PR ---
Subjective Remarks Follow up rhabdomyolysis. Patient still having some muscle cramps, but better than yesterday. No other complaints at this time. Objective Vitals Vital Signs Date Time Temp Pulse Resp B/P (MAP) Pulse Ox O2 Delivery O2 Flow Rate FiO2 09/19/17 12:00 97.6 76 16 133/63 (86) 100 09/19/17 08:00 97.6 76 16 136/78 (97) 99 09/19/17 05:05 Nasal Cannula 2.00 09/19/17 04:00 98.7 70 16 131/66 (87) 98 09/19/17 00:00 98.0 79 17 114/71 (85) 98 09/18/17 20:00 98.8 90 18 143/65 (91) 98 09/18/17 16:00 97.6 80 20 140/72 (94) 100 I/O 09/18/17 09/18/17 09/18/17 09/19/17 09/19/17 09/19/17 07:00 15:00 23:00 07:00 15:00 23:00 Intake Total 720 ml 1263 ml 800 ml Output Total 400 ml 950 ml 800 ml 1400 ml Balance 320 ml 313 ml -800 ml -600 ml Intake Oral 720 ml 360 ml 800 ml IV Total 903 ml Output Urine Total 400 ml 950 ml 800 ml 1400 ml # Voids 4 # Bowel Movements 0 1 Result Diagram: 09/19/1770509/19/17705 Objective Remarks General: No acute distress. Heart: Regular rate and rhythm. No murmur. Lungs: Clear to auscultation bilaterally. No wheezes, rales, or rhonchi. Breathing is nonlabored. Abdomen: Soft, nontender, nondistended. Extremities: No lower extremity edema. Psych: Alert and oriented. Neuro: Normal speech. No focal deficits noted. Procedures None Urinary Catheter: No Vascular Central Line Catheter: No A/P Problem List: (1) Hallucinations ICD Code: R44.3 - Hallucinations, unspecified (2) AUSTIN (acute kidney injury) ICD Code: N17.9 - Acute kidney failure, unspecified Status: Acute (3) Rhabdomyolysis ICD Code: M62.82 - Rhabdomyolysis Status: Acute Assessment and Plan 1. Rhabdomyolysis: Likely secondary to cocaine use. Urine drug screen positive for cocaine and cannabinoids. CK still trending up. Continue IV fluids. Encourage oral fluid intake. Symptoms improving. 2. Acute kidney injury: Improved. Continue IV fluids. 3. Hallucinations, history of schizophrenia: Appreciate psychiatry recommendations. No antipsychotic medications at this time. Follow-up as outpatient with Tommy Munoz. 4. Tobacco abuse: Counseled. Nicotine patch if needed. 5. Drug abuse: Patient admits to marijuana use. UDS positive for cocaine, cannabinoids. Counseled on cessation. 6. Diastolic heart murmur: Echocardiogram shows ejection fraction of 50% with normal wall thickness. There is mild thickening of the mitral valve leaflets, trace to mild mitral valve regurgitation, mild tricuspid valve regurgitation, mild pulmonary valve regurgitation. No signs of fluid overload on exam. 7. DVT prophylaxis: Ambulation. Problem Qualifiers (1) Rhabdomyolysis: Qualified Codes: M62.82 - Rhabdomyolysis Lalo Mejia MD Sep 19, 2017 13:14
[2017-09-19 16:00] VITALS: BP 144/85; PULSE 77; RESP 16; TEMP 97.4; O2SAT 97
[2017-09-19 19:00] VITALS: BP 152/79; PULSE 82; RESP 16; TEMP 98; O2SAT 98
[2017-09-20] VITALS: BP 147/68; PULSE 74; RESP 21; TEMP 97.7; O2SAT 98
[2017-09-20 04:00] VITALS: BP 135/64; PULSE 75; RESP 20; TEMP 97.7; O2SAT 98
[2017-09-20] MEDS: SODIUM CHLOR 0.9% 1000 ML INJ 1,000 ML IV SCH ×3 (05:25→15:33)
[2017-09-20 06:03] LABS: BICARBONATE 27.5 MEQ/L (21.0-32.0); CALCIUM 8.4 MG/DL (8.5-10.1); CREATININE 0.87 MG/DL (0.60-1.30)
[2017-09-20 08:00] VITALS: BP 147/86; PULSE 77; RESP 15; TEMP 98.5; O2SAT 100
--- NOTE | 2017-09-20 09:24 | HHI.DCPOC ---
Discharge Care Plan Diagnosis: (1) Heart murmur (2) Rhabdomyolysis (3) AUSTIN (acute kidney injury) (4) Hallucinations (5) Substance-induced psychotic disorder Goals to Promote Your Health * To prevent worsening of your condition and complications * To maintain your health at the optimal level Directions to Meet Your Goals Take your medications as prescribed Follow your dietary instruction Follow activity as directed Keep your appointments as scheduled Take your immunizations and boosters as scheduled If your symptoms worsen call your PCP, if no PCP go to Urgent Care Center or Emergency Room Smoking is Dangerous to Your Health. Avoid second hand smoke Call the 24-hour hour crisis hotline for domestic abuse at Lalo Mejia MD Sep 20, 2017 09:24
--- NOTE | 2017-09-20 09:38 | HHI.PR ---
Subjective Remarks Follow up rhabdomyolysis. The patient has no complaints at this time. Denies chest pain, dyspnea. Muscle pain has resolved. He wants to go home. Objective Vitals Vital Signs Date Time Temp Pulse Resp B/P (MAP) Pulse Ox O2 Delivery O2 Flow Rate FiO2 09/20/17 08:00 98.5 77 15 147/86 (106) 100 09/20/17 04:00 97.7 75 20 135/64 (87) 98 09/20/17 00:00 97.7 74 21 147/68 (94) 98 09/19/17 19:00 98.0 82 16 152/79 (103) 98 09/19/17 16:00 97.4 77 16 144/85 (104) 97 09/19/17 12:00 97.6 76 16 133/63 (86) 100 I/O 09/19/17 09/19/17 09/19/17 09/20/17 09/20/17 09/20/17 07:00 15:00 23:00 07:00 15:00 23:00 Intake Total 800 ml 4213 ml 480 ml Output Total 1400 ml Balance -600 ml 4213 ml 480 ml Intake Oral 800 ml 600 ml 480 ml IV Total 3613 ml Output Urine Total 1400 ml # Voids 3 4 # Bowel Movements 1 Result Diagram: 09/19/17 0706 09/20/17 0452 Objective Remarks General: No acute distress. Heart: Regular rate and rhythm. 2/6 murmur along the left sternal border. Lungs: Clear to auscultation bilaterally. No wheezes, rales, or rhonchi. Breathing is nonlabored. Abdomen: Soft, nontender, nondistended. Extremities: No lower extremity edema. No calf tenderness Psych: Alert and oriented. Neuro: Normal speech. No focal deficits noted. Procedures None Urinary Catheter: No Vascular Central Line Catheter: No A/P Problem List: (1) Hallucinations ICD Code: R44.3 - Hallucinations, unspecified (2) AUSTIN (acute kidney injury) ICD Code: N17.9 - Acute kidney failure, unspecified Status: Acute (3) Rhabdomyolysis ICD Code: M62.82 - Rhabdomyolysis Status: Acute (4) Heart murmur ICD Code: R01.1 - Cardiac murmur, unspecified (5) Substance-induced psychotic disorder ICD Code: F19.959 - Other psychoactive substance use, unspecified with psychoactive substance-induced psychotic disorder, unspecified Assessment and Plan 1. Rhabdomyolysis: Likely secondary to cocaine use. Urine drug screen positive for cocaine and cannabinoids. CK still trending up. Continue IV fluids. Encourage oral fluid intake. Symptoms improving. 2. Acute kidney injury: Improved. Continue IV fluids. 3. Hallucinations, history of schizophrenia: Appreciate psychiatry recommendations. No antipsychotic medications at this time. Follow-up as outpatient with Tommy Munoz. 4. Tobacco abuse: Counseled. Nicotine patch if needed. 5. Drug abuse: Patient admits to marijuana use. UDS positive for cocaine, cannabinoids. Counseled on cessation. 6. Diastolic heart murmur: Echocardiogram shows ejection fraction of 50% with normal wall thickness. There is mild thickening of the mitral valve leaflets, trace to mild mitral valve regurgitation, mild tricuspid valve regurgitation, mild pulmonary valve regurgitation. No signs of fluid overload on exam. Pulmonary artery pressure 26mmHg. Consult cardiology. 7. DVT prophylaxis: Ambulation. Discharge Planning Plan for discharge home when cleared by cardiology. Problem Qualifiers (1) Rhabdomyolysis: Qualified Codes: M62.82 - Rhabdomyolysis Lalo Mejia MD Sep 20, 2017 09:38
[2017-09-20 12:00] VITALS: BP 135/75; PULSE 72; RESP 15; TEMP 98.1; O2SAT 98
[2017-09-20 16:00] VITALS: BP 137/77; PULSE 67; RESP 16; TEMP 98.3; O2SAT 99
--- NOTE | 2017-09-20 18:25 | MB ---
cc: Ezequiel Alvarez MD DATE: 09/20/2017 REASON FOR CONSULTATION: Abnormal echocardiogram, murmur. HISTORY OF PRESENT ILLNESS: The patient is a 32-year-old male with a history of schizophrenia, who presented to the hospital with some suicidal thoughts. He was found on admission to have evidence for rhabdomyolysis with acute transient increase in his renal indices. Here in the hospital, his echocardiogram was felt to be abnormal. The patient states he has felt mild dyspnea on exertion for the last 2 weeks. He denies paroxysmal nocturnal dyspnea, pretibial edema, syncope, near syncope, palpitations, recent flu symptoms, cough, wheezing, fevers. PAST MEDICAL HISTORY: None. CARDIAC MEDICATIONS AT HOME: None. ALLERGIES: NO KNOWN DRUG ALLERGIES. FAMILY HISTORY: There is no significant family history of cardiac disease. SOCIAL HISTORY: The patient smokes about 4 cigarettes per day. He smokes marijuana occasionally. There is no history of alcohol abuse. REVIEW OF SYSTEMS: As in the history of present illness, otherwise negative or noncontributory. He also denies headache, abdominal pain, melena, dyspepsia, bright red blood per rectum. PHYSICAL EXAMINATION: VITAL SIGNS: Blood pressure 137/77 with a pulse of 67, respirations 16. GENERAL: He is a well-developed, well-nourished male in no acute distress. NECK: Jugular venous pressure is normal. Carotid pulses are 2+ bilaterally and without bruits. CHEST: Reveals clear lungs esteban. CARDIAC: He has a regular rhythm and rate with a grade I-II/ systolic murmur heard along the left sternal border. There is questionably an early diastolic murmur at the left upper sternal border. No gallop is audible. ABDOMEN: He has a soft, nontender abdomen. Bowel sounds are present. There is no definite hepatosplenomegaly. EXTREMITIES: Reveals no clubbing, cyanosis or edema. LABORATORY DATA: Includes WBC 6.1, hemoglobin 13.7, platelets 180. Potassium 3.6, BUN 6, creatinine 0.87 (1.94 on admission). CK 4300. IMPRESSION: Overall stable cardiac status in this 32-year-old male with no major past medical history admitted with rhabdomyolysis and acute renal insufficiency. He does appear to have a soft systolic murmur on exam. He questionably has a diastolic murmur at the left upper sternal border. His echocardiogram has been reviewed. I suspect his ejection fraction is closer to 55-60%, rather than the 50% reported. There is trivial tricuspid regurgitation and trace to mild mitral regurgitation. Both of these valvular abnormalities are of no clinical significance. There is no evidence for acute coronary syndrome or congestive heart failure. RECOMMENDATIONS: 1. No additional workup from a cardiac standpoint. 2. He is cleared for discharge from my standpoint. MD ERIN Dejesus/FERNANDO , 05:08 PM , 06:24 PM LUIS
[2017-09-20 21:00] VITALS: BP 143/87; PULSE 67; RESP 16; TEMP 97.7; O2SAT 100
--- NOTE | 2017-09-21 15:09 | HHI.DS ---
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 The patient reports he came to the hospital because he started hearing voices. He states the voices are mostly chanting and he can't really make out what they are saying. Denies any suicidal or homicidal ideations. He states he is supposed to be taking Risperdal, Trazodone, Seroquel however had been out of the medications for 1 week now. He does not have PCP but does get prescriptions from Tommy Munoz. Denies any pain, headache, lightheadedness, dizziness, chest pain, or abdominal complaints. Diastolic murmur heard on exam, patient does endorse shortness of breath with ambulation. Admits to marijuana use but denies any IVDU. He denies any other medical complaints at this time. CBC/BMP: 09/19/17 0706 09/20/17 0452 Significant Findings Laboratory Tests Test 09/19/17 07:06 09/20/17 04:52 Red Blood Count 4.44 MIL/MM3 (4.50-5.90) Chloride Level 108 MEQ/L (98-107) 109 MEQ/L (98-107) Total Creatine Kinase 4937 U/L (39-308) 4300 U/L (39-308) Blood Urea Nitrogen 6 MG/DL (7-18) Calcium Level 8.4 MG/DL (8.5-10.1) PE at Discharge General: No acute distress. Heart: Regular rate and rhythm. 2/6 murmur along the left sternal border. Lungs: Clear to auscultation bilaterally. No wheezes, rales, or rhonchi. Breathing is nonlabored. Abdomen: Soft, nontender, nondistended. Extremities: No lower extremity edema. No calf tenderness Psych: Alert and oriented. Neuro: Normal speech. No focal deficits noted. Hospital Course The patient was admitted for management of rhabdomyolysis, thought to be secondary to cocaine use. He was continued on IV fluids. Psychiatry was consulted for evaluations of hallucinations with history of schizophrenia. Patient was advised to follow-up as an outpatient with Tommy Rasmussen. Serum CK increased initially, but then trended downward. The patient's muscle pains resolved. He was noted on exam to have a heart murmur. Echocardiogram was done. Cardiology was consulted. He was cleared for discharge by cardiology. He was felt to be stable for discharge home. He was advised to stay well-hydrated and to avoid illicit drugs. Pt Condition on Discharge: Stable Discharge Disposition: Discharge Home Discharge Time: > 30 minutes Discharge Instructions DIET: Follow Instructions for: As Tolerated, No Restrictions Activities you can perform: Regular-No Restrictions Follow up Referrals: Cardiology - 1 Week with Ezequiel Alvarez MD PCP Follow-up - 1 Week Psychiatry Adult - 3-5 Days with Tommy Quevedo Medication Profile: No Active Prescriptions or Reported Meds Lalo Mejia MD Sep 21, 2017 15:09
== END 2017-09-20 22:46 | disposition home or self-care (01) | DRG 683 ==
LOC: NEPE 04:59 → NEDA 09:25 → OBSVTOIN 10:05 → NEDA 12:03 → NEDH 13:17 → N06B 17:42
PROVIDERS: ADMIT Family Medicine; ATTEND Family Medicine
DX: N17.9 Acute kidney failure, unspecified (principal); M62.82 Rhabdomyolysis; R45.851 Suicidal ideations; F24 Shared psychotic disorder; E86.0 Dehydration; F20.9 Schizophrenia, unspecified; I08.1 Rheumatic disorders of both mitral and tricuspid valves; F17.210 Nicotine dependence, cigarettes, uncomplicated; F12.159 Cannabis abuse with psychotic disorder, unspecified; F14.159 Cocaine abuse with cocaine-induced psychotic disorder, unspecified; Z76.5 Malingerer [conscious simulation]; Z91.14 Patient's other noncompliance with medication regimen
CPT/HCPCS: 80048; 80307; 81001; 82550; 82552; 85025; 93306; 99285; J7030